=== PATIENT | male | born 1950 | race Caucasian/White ===

== ENCOUNTER 2017-06-14 16:24 | Emergency (ER) | payer MEDICARE, OTHER ==
[~2017-06-14] VITALS: Ht 175.3 cm; Wt 94.5 kg
[2017-06-14 16:27] VITALS: Ht 175.3 cm; Wt 94.5 kg
--- NOTE | 2017-06-14 17:17 | RADRPT ---
PROCEDURE: US right lower extremity veins. CLINICAL INDICATION: Right leg pain and swelling. TECHNIQUE: Multiple longitudinal and transverse images of the right lower extremity veins were obt ained with [place] scale and color Doppler imaging. The common femoral vein, femoral vein, and poplitea l vein were evaluated. 2D grayscale measurements with compression sonography, pulsed Doppler, color Doppler, and pulsed Doppler with augmentation. COMPARISON: No prior studies are available for comparison. FINDINGS: The right common femoral, femoral and popliteal veins are normally compressible throughout. Color f low demonstrates normal filling of the vessels. Normal waveforms are visualized and there is normal response to augmentation. Incidental note is made of the thrombosed dilated tortuous superficial vein in the right calf. IMPRESSION: 1. No evidence of deep vein thrombosis involving the right lower extremity. 2. Thrombosed dilated tortuous superficial vein in the right calf. RPTAT: QQ .Troy Kauffman MD, MD Date Time Electronically viewed and signed by .Troy Kauffman MD, on 06/14/2017 17:16 .R/
[2017-06-14 18:00] VITALS: BP 129/84; PULSE 53; RESP 20; TEMP 98.8
--- NOTE | 2017-06-14 18:27 | ERD ---
ER Documentation Chief Complaint Chief Complaint Sent from for eval R/o DVT HPI This is a 66-year-old male who presents to the emergency room after being sent in by his primary care physician Dr. Graves evaluation of right lower extremity pain. The patient states that he has had intermittent pain on and off for the past 3 weeks in the right lower extremity localizes to the calf. He describes the pain as an achy pain with no radiation. He denies any trauma to the area, the patient states that he was sent to rule out any of blood clots in his leg. He has no history of blood clots and is not on any blood thinners at this time ROS All systems reviewed and are negative except as per history of present illness. Medications Home Meds No Active Prescriptions or Reported Meds Allergies Allergies: Coded Allergies: No Known Allergy (Unverified , 06/14/17) PMhx/Soc Medical and Surgical Hx: pt denies Medical Hx History of Surgery: Yes (varicose vein removal) Anesthesia Reaction: No Hx Neurological Disorder: No Hx Respiratory Disorders: No Hx Cardiac Disorders: No Hx Psychiatric Problems: No Hx Miscellaneous Medical Probl: No Hx Alcohol Use: Yes (socially) Hx Substance Use: No Hx Tobacco Use: No Smoking Status: Never smoker Physical Exam Vitals Vital Signs Date Time Temp Pulse Resp B/P Pulse Ox O2 Delivery O2 Flow Rate FiO2 06/14/17 18:00 98.8 53 20 129/84 97 06/14/17 16:27 98.8 55 20 147/69 98 Physical Exam Const: No acute distress Head: Atraumatic Eyes: Normal Conjunctiva ENT: Normal External Ears, Nose and Mouth. Neck: Full range of motion..~ No meningismus. Resp: Clear to auscultation bilaterally Cardio: Regular rate and rhythm, no murmurs Abd: Soft, non tender, non distended. Normal bowel sounds Skin: No petechiae or rashes Back: No midline or flank tenderness Ext: No erythema, no swelling of the calf, mild area of induration noted, no cyanosis, or edema Neur: Awake and alert Psych: Normal Mood and Affect Procedures/MDM Right lower extremity ultrasound: No DVT This 66-year-old male presents to the ER for evaluation of irritation in the right calf. He had no erythema, he was a small area of induration noted, no abscess noted. He was afebrile with good pulses distally. The patient underwent an ultrasound of the right lower extremity which does not show any signs of DVT. This patient was advised he can follow-up with his primary care physician next week for further evaluation. He has no signs of cellulitis at this time. The patient is okay with her plan of care and advised him he can return to the emergency room anytime for reevaluation Departure Diagnosis: Primary Impression: Pain of right leg Condition: Stable TRE RODRIGUEZ DO Jun 14, 2017 18:27
== END 2017-06-14 18:42 | disposition home or self-care (01) ==
LOC: E/R 16:24
DX: M79.604 Pain in right leg (principal)
CPT/HCPCS: 93971; 99282